=== PATIENT | female | born 1955 | race Caucasian/White ===

== ENCOUNTER → 2018-06-09 13:31 | Outpatient (CLI) | payer MEDICARE, SELFPAY ==
[2018-06-09 14:18] LABS: Color, Urine Yellow (Yellow); Glucose, Dipstick Normal (Normal); Ketone-Dipstick Negative (Negative); Leukocyte Esterase-Dipstick Negative /ul (Negative); Nitrite-Dipstick Negative (Negative); Occult Blood-Urine 50 /ul (Negative); Protein-Dipstick Negative (Negative); Specific Gravity, Urine 1.015 (1.002-1.030); Urine Bilirubin Dipstick Negative (Negative); Urine Clarity Clear (Clear); Urine Urobilinogen Normal (Normal)
== END ==
PROVIDERS: Family Provider Family Medicine; PCP Family Medicine; Visit Provider Family Medicine
DX: R30.0 Dysuria (principal)
CPT/HCPCS: 81002

== ENCOUNTER → 2018-10-28 06:51 | Outpatient (CLI) | payer MEDICARE, SELFPAY ==
[2018-10-25 13:23] VITALS: BMI 25.7
--- NOTE | 2018-10-28 07:08 | RAD_ITS ---
HISTORY: RT SI JT INFLAMATION AND BACK PAIN. HX NUMEROUS FALLS. COMPARISON: None FINDINGS: XR right Hip Unilateral with Pelvis when performed; 3 Views: No fracture or dislocation. Degenerative arthritis with mild narrowing of the right femoral acetabular joint accompanied by mild marginal spurring of the right femoral head. The left hip joint appears preserved and the SI joints are symmetrical and appear preserved. No bony erosion seen. As visualized, and the soft tissues are negative. RAD/HIP, UNI W/ Pelvis 2-3 Views IMPRESSION: 1. Right hip mild osteoarthritis. No acute disease seen. 2. The SI joints are symmetrical and appear normal. at 0515 Reported and signed by: Andriy Magana MD Electronically Signed: Andriy Magana, at 5:14 EST Tel , Service support ,
--- NOTE | 2018-10-28 07:08 | RAD_ITS ---
STUDY: X-RAY - LUMBAR SPINE REASON FOR EXAM: Female, 63 years old. Back pain. History of right SI joint inflammation. TECHNIQUE: 5 view(s) of the lumbar spine were obtained including oblique views. COMPARISON: None FINDINGS: Normal lumbar lordosis. There is no substantial scoliosis. There is a normal alignment of the vertebrae. There is mild degree of endplate spondylosis of the lumbar vertebrae. Mild degree of disc space narrowing at the L5-S1 level. There is atherosclerotic calcification of the abdominal aorta without a demonstrated aneurysm. RAD/L/S Spine Min 4 Views IMPRESSION: Degenerative changes of the spine, as detailed above. Electronically Signed: Jd Yuan MD at 9:47 EST , Service support ,
[2018-10-28 08:48] LABS: Erythrocyte Sedimentation Rate 3 mm/hr (0-30)
[2018-10-28 09:10] LABS: CRP < 2.90 mg/L (0.0-3.0); Rheumatoid Factor < 10.0 IU/mL (<15); T4 Free Direct 0.75 ng/dL (0.76-1.46); Thyroid Stim Hormone (TSH) 1.65 uIU/mL (0.358-3.74)
[2018-10-28 11:16] LABS: Vitamin B12 446 pg/mL (211-911); Vitamin D,25 Hydroxy 29.7 ng/mL (29.95-100.01)
[2018-10-29 14:34] LABS: ANTINUCLEAR ANTIBODIES DIRECT Negative (Negative)
== END ==
PROVIDERS: Family Provider Family Medicine; PCP Family Medicine; Referring Provider Family Medicine; Visit Provider Family Medicine
DX: E03.9 Hypothyroidism, unspecified (principal); M25.50 Pain in unspecified joint; M79.10 Myalgia, unspecified site; M25.551 Pain in right hip; M54.5 Low back pain
CPT/HCPCS: 36415; 72110; 73502; 82306; 82607; 84439; 84443; 84481; 85652; 86038; 86140; 86225; 86235; 86431

== ENCOUNTER 2018-11-22 08:57 | Day surgery (SDC) | payer MEDICARE, SELFPAY ==
[2018-11-10 15:21] VITALS: BMI 25.7
[2018-11-22 09:12] VITALS: BP 161/91; PULSE 83; RESP 18; TEMP 37.1; O2SAT 100
--- NOTE | 2018-11-22 10:15 | COLBX_PTH ---
PATIENT: AXEL SALDANA LOC: EN U#:[id number] AGE/SX: 63/F ROOM: RE11/22/[address]: Dr. Isidra Redding MD : 1955 BED: DIS: 11/22/2018 SPEC #: [id number] RECD: 11/22/18 10:59 STATUS: OMAR REKelsey #: [id number] LISA: 11/22/18 10:[address]: Isidra Redding DEPT: SURGICAL PATHOLOGY RECD BY: Tobin Carrasquillo ENTERED: 11/22/18 12:47 SP TYPE: COLON BX OTHR DR: Dr. Polina Carter DO Tissues: A - Ascending colon B - Transverse colon C - Descending colon D - Sigmoid colon biopsy E - Rectum, NOS F - Rectum, NOS Procedures: Surgery Specimen Level IV HEADER OPERATION: Colonoscopy (MAC) PRE-OP DIAGNOSIS: Diarrhea, history C-diff TISSUE SUBMITTED: A - Ascending colon biopsy, B - Transverse colon biopsy, C - Descending colon biopsy, D - Sigmoid colon biopsy, E - Rectal biopsy, F - Rectal polyp biopsy MICROSCOPIC DIAGNOSIS A. Ascending colon, biopsy: Fragments of colonic mucosa, no pathologic diagnosis. B. Transverse colon, biopsy: A fragment of colonic mucosa, no pathologic diagnosis. C. Descending colon, biopsy: A fragment of colonic mucosa, no pathologic diagnosis. D. Sigmoid colon, biopsy: Fragments of colonic mucosa, no pathologic diagnosis. E. Rectal biopsy: A fragment of colonic mucosa, no pathologic diagnosis. F. Rectal polyp, biopsy: Fragments of hyperplastic polyp. SJ:israel 11/23/18 MICROSCOPIC DESCRIPTION Slides are reviewed. GROSS DESCRIPTION A - Received in fixative is one container labeled with the patient's name and designated ascending biopsy. The specimen consists of two irregular fragments of light cesar soft tissue that in aggregate measure 0.6 x 0.3 x 0.1 cm. The specimen is totally submitted in one cassette. B - Received in fixative is one container labeled with the patient's name and designated transverse biopsy. The specimen consists of one irregular fragment of light cesar soft tissue that measures 0.6 x 0.2 x 0.1 cm. The specimen is totally submitted in one cassette. C - Received in fixative is one container labeled with the patient's name and designated descending biopsy. The specimen consists of one irregular fragment of light cesar soft tissue that measures 0.3 x 0.3 x 0.1 cm. The specimen is totally submitted in one cassette. D - Received in fixative is one container labeled with the patient's name and designated sigmoid colon biopsy. The specimen consists of two irregular fragments of light cesar soft tissue that in aggregate measure 0.4 x 0.4 x 0.1 cm. The specimen is totally submitted in one cassette. E - Received in fixative is one container labeled with the patient's name and designated rectal biopsy. The specimen consists of one irregular fragment of light cesar soft tissue that measures 0.4 x 0.2 x 0.1 cm. The specimen is totally submitted in one cassette. F - Received in fixative is one container labeled with the patient's name and designated rectal polyp biopsy. The specimen consists of two irregular fragments of light cesar soft tissue that in aggregate measure 0.4 x 0.2 x 0.1 cm. The specimen is totally submitted in one cassette. / SJ:rg 11/22/18 TC:1 CPT: 29842 x6
[2018-11-22 10:35] VITALS: BP 155/108; BP 161/91; PULSE 73; RESP 16; TEMP 36.4; O2SAT 100
[2018-11-22 10:40] VITALS: BP 152/96; BP 161/91; PULSE 69; RESP 16; O2SAT 100
--- NOTE | 2018-11-22 10:41 | OP.ENDO_ITS ---
Patient Name: Radha Gomez Procedure Date: 11/22/2018 9:57 AM Date of : 1955 Age: 63 Procedure: Colonoscopy Indications: Chronic diarrhea, Hx of c. diff in 2013 after getting Zpak Providers: Isidra Redding MD Medicines: Monitored Anesthesia Care Patient Profile: This is a 63 year old female. Last Colonoscopy: none. The patient's first colonoscopy is today. Complications: No immediate complications. Procedure: Pre-Anesthesia Assessment: - Prior to the procedure, a History and Physical was performed, and patient medications and allergies were reviewed. The patient's tolerance of previous anesthesia was also reviewed. The risks and benefits of the procedure and the sedation options and risks were discussed with the patient. All questions were answered, and informed consent was obtained. Prior Anticoagulants: The patient has taken no previous anticoagulant or antiplatelet agents. ASA Grade Assessment: II - A patient with mild systemic disease. After reviewing the risks and benefits, the patient was deemed in satisfactory condition to undergo the procedure. After I obtained informed consent, the scope was passed under direct vision. Throughout the procedure, the patient's blood pressure, pulse, and oxygen saturations were monitored continuously. The Colonoscope was introduced through the anus and advanced to the cecum, identified by the appendiceal orifice, ileocecal valve and palpation. The colonoscopy was performed without difficulty. The patient tolerated the procedure well. The quality of the bowel preparation was good. Scope In: 10:09:19 AM Scope Withdrawal Time 0 hours 11 minutes 55 seconds Scope Out: 10:32:25 AM Total Procedure Duration Time 0 hours 23 minutes 6 seconds Findings: The perianal and digital rectal examinations were normal. Biopsies were taken with a cold forceps in the rectum, in the sigmoid colon, in the descending colon, in the transverse colon and in the ascending colon for histology due to history of chronic diarrhea. The exam was otherwise without abnormality on direct and retroflexion views. A less than 5 mm polyp was found in the rectum. The polyp was sessile. The polyp was removed with a cold biopsy forceps. Resection and retrieval were complete. Impression: - The examination was otherwise normal on direct and retroflexion views. - Biopsies were taken with a cold forceps for histology in the rectum, in the sigmoid colon, in the descending colon, in the transverse colon and in the ascending colon due to history of chronic diarrhea. Recommendation: - Discharge patient to home. - Continue present medications. - Await pathology results. - Repeat colonoscopy in 5-10 years for screening purposes. Procedure Code(s): --- Professional --- 33216, Colonoscopy, flexible; with biopsy, single or multiple Diagnosis Code(s): --- Professional --- K52.9, Noninfective gastroenteritis and colitis, unspecified CPT copyright 2017 [employer] [place] [employer]. All rights reserved. The codes documented in this report are preliminary and upon district manager primary care sales review may be revised to meet current compliance requirements. MD Isidra Cabrera MD 11/22/2018 10:40:52 AM This report has been signed electronically. Number of Addenda: 0 Note Initiated On: 11/22/2018 9:57 AM
[2018-11-22 10:45] VITALS: BP 155/103; BP 161/91; PULSE 63; RESP 16; O2SAT 100
[2018-11-22 10:50] VITALS: BP 156/88; BP 161/91; PULSE 66; RESP 16; TEMP 36.6; O2SAT 100
[2018-11-22 11:03] VITALS: BP 161/91
== END 2018-11-22 11:15 | disposition home or self-care (01) ==
LOC: EN 08:57 → AC 08:59
PROVIDERS: Family Provider Family Medicine; PCP Family Medicine; Referring Provider Surgery; Visit Provider Surgery
PROC: 0DJD8ZZ Inspection of Lower Intestinal Tract, Via Natural or Artificial Opening Endoscopic (ICD-10-PCS; CPT 45378; principal; 2018-11-22 10:10)
DX: K52.9 Noninfective gastroenteritis and colitis, unspecified (principal); E55.9 Vitamin D deficiency, unspecified; F12.90 Cannabis use, unspecified, uncomplicated; I10 Essential (primary) hypertension; M79.7 Fibromyalgia; Z86.19 Personal history of other infectious and parasitic diseases
CPT/HCPCS: 45380; 88305; J7120

== ENCOUNTER → 2019-05-10 12:43 | Outpatient (CLI) | payer MEDICARE, SELFPAY ==
[2018-11-10 15:21] VITALS: BMI 25.7
--- NOTE | 2019-05-10 12:59 | BD_ITS ---
STUDY: DUAL ENERGY X-RAY ABSORPTIOMETRY / DXA REASON FOR EXAM: Female, 63 years old. The patient is postmenopausal. Loss of height. TECHNIQUE: Bone Mineral Density (BMD) measurements of lumbar spine and bilateral hips were obtained. COMPARISON: None. FINDINGS: Lumbar Spine (L1-L4): g/cm2 (0.920) / T-score (-2.2) / Z-score (-0.8) Findings are suggestive of osteopenia with a high fracture risk. Left Femur Total: g/cm2 (0.738) / T-score (-2.1) / Z-score (-1.1) Left Femoral Neck: g/cm2 (0.706) / T-score (-2.4) / Z-score (-1.1) Right Femur Total: g/cm2 (0.733) / T-score (-2.2) / Z-score (-1.2) Right Femoral Neck: g/cm2 (0.831) / T-score (-1.5) / Z-score (-0.2) BD/Dexa Bone Density Study IMPRESSION: The patient is considered osteopenic as outlined below according to World [employer] Organization (WHO) criteria with a high fracture risk. Reference Information: The T-score is the number of standard deviations above or below the standard which is normal for young adults at their peak bone mineral density. The World Health Organization (WHO) interprets the T-scores as follows: Above -1 Normal bone density Between -1 and -2.5 Osteopenia Equal to / or below -2.5 Osteoporosis As a practical clinical guideline, osteopenia may be graded as follows: Mild -1 through -1.5 Moderate -1.6 through -2.0 Severe -2.1 through -2.4 The Z-score is the number of standard deviations above or below age-matched controls. A Z-score of less than -1.5 would be considered abnormal. References: 1. NIH Osteoporosis and Related Bone Diseases http://www.osteo.org 2. International Society for Clinical Densitometry http://www.iscd.org 3. National Osteoporosis Foundation http://www.nof.org Electronically Signed: Jd Yuan, at 11:02 EDT , Service support ,
== END ==
PROVIDERS: Family Provider Family Medicine; PCP Family Medicine; Referring Provider Family Medicine; Visit Provider Family Medicine
DX: M81.0 Age-related osteoporosis without current pathological fracture (principal)
CPT/HCPCS: 77080

== ENCOUNTER 2019-05-10 17:10 | Outpatient (RCR) | payer MEDICARE, SELFPAY ==
[2018-11-10 15:21] VITALS: BMI 25.7
--- NOTE | 2019-05-10 18:24 | HP.PTEVAL_ITS ---
Patient's Visit Information PONCE SALDANA is a 63 year old F referred to Physical Therapy by Polina Carter DO with a diagnosis of Lumbar back pain. Date of Evaluation: 05/10/19 Physical Therapist: ESHA ThurmanT, OCS, CSCS - Visit Plan Frequency: 2x /Week Duration: 4 Weeks Plan: 2x/week for 2-4 weeks as needed. Start with aquatic therapy to teach Neutral spine core strength exercises and ITB, HS, QUaad stretches. 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 May progress to land as needed after I with pool ex. May go to yoga stretches and NS strength on lnad after. - Subjective Findings: Have FM, blood cancer(not luekemia) andauto immune. Lot of pain lately due to stress. On disability due to pain. Tried working laely but could not tolerate. Not interested in opioids. 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 Bone density test showed pre osteoporosis. CA is diminishing due to meds for pain. Is looking into other autoimmuneLupus etc. 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 Swims regualrly. Pain has increased in last 4 months due to FM flare up, vitamin D deficiency. Working with Dr. Carter to strengthen core muscles to help relieve pain. has massage therapist regularly. Is considering injections. Doing exercises including swim program breastroke adn freestyle. Does some stretches in water and some core strength on mat in water. Quads and calves cramp up. Numb from knees down with neuropathy and has had it long time. - Pain middle LBP Pain Intensity (Out of 10): 0 Pain Intensity Range: 0, 10 Comment: R sided LBP, wakes up painful. - Objective Walks with increased lordosis and i without deviations. Trasnfers I. Steps are reciprocal with rail. Posture is kyphotic in T/S and lordotic in L/S. reflexes 0/3 patella and achilles. Sensation LE is poor to gross light touch from 3 above knees and down. Strength LE 4+/5 without pain or problems. Flexibility in quad and HS and ITB max tight. Can find neutral spine quickly but hard for her to hold it without VC. L/S ext is WNL with slight central pain, flexion is tight in lumbar area and stiff. SB are full and painfree. - Balance Scores Functional Gait Assessment Score: 24 % Disability: 20.0000 - Goals Goal 1:: Pt able to find adn hold NS position without cues Goal Time Frame: 4-6 Weeks Goal 2:: I apporp water ex for neutral spine core strength Goal Time Frame: 2-4 Weeks Goal 3:: Pt feel pain in back 1/10 at worst adn 75% improved Goal Time Frame: 4-6 Weeks Goal 4:: Sleep without problems due to pain Goal Time Frame: 4-6 Weeks - Rehabilitation Potential Physical Therapy Diagnosis: LBP degenerative in nature. Rehabilitation Potential: Fair - Anticipated Interventions Patient/Client Instruction: Educate patient on: Condition, Plan of Care For the Purpose of:: To decrease pain, To increase tolerance to activity/condition/position Therapeutic Exercise to Include: Strength training, Flexibilty training, Passive ROM, Active ROM, Dynamic Lumbar Stabilization For the Purpose of:: To decrease pain, To increase ROM, To increase tolerance to activity/condition/position Thank you for the opportunity to evaluate your patient. For Medicare and Medicare HMO plans, please review the plan of care and approve it. It will need to be FAXED BACK to us at [phone] for Medicare purposes. For Medicare only, by signing this I certify the plan of care. Please let me know if there are questions or concerns regarding this plan of care. Physician Signature: Date:
--- NOTE | 2019-07-13 13:47 | HP.PTDCNRP_ITS ---
HP - Discharge Summary (1) - Patient Information PONCE SALDANA was seen in my office for initial evaluation on 05/10/19. The following Plan of Care was established for this patient: Initial Frequency: 2x /Week Initial Duration: 4 Weeks - Anticipated Interventions Patient/Client Instruction: Educate patient on: Condition, Plan of Care For the Purpose of:: To decrease pain, To increase tolerance to activity/con dition/position Therapeutic Exercise to Include: Strength training, Flexibilty training, Passive ROM, Active ROM, Dynamic Lumbar Stabilization For the Purpose of:: To decrease pain, To increase ROM, To increase tolerance to activity/condition/position This patient was last seen in our office 05/10/19. Pertinent comments regarding their Physical therapy will appear below: Pt seen for evaluation adn POC of aquatic therapy established. She cancelled her first session and neglected to return for further therapy. At this point, it has been two months and I will discontinue due to non attendance. At this point I will be discontinuing this patient from physical therapy. I would be happy to see this patient again in the future if found appropriate by the physician. Thank you! Oswald Pelletier, DPT, OCS, CSCS
== END 2019-05-10 19:00 | disposition home or self-care (01) ==
LOC: PT 17:10
PROVIDERS: Family Provider Family Medicine; PCP Family Medicine; Referring Provider Family Medicine; Visit Provider Family Medicine
DX: M54.5 Low back pain (principal)
CPT/HCPCS: 97110; 97162

== ENCOUNTER → 2020-03-29 13:45 | Outpatient (CLI) | payer MEDICARE, SELFPAY ==
[2018-11-10 15:21] VITALS: BMI 25.7
[2020-03-29 15:13] LABS: Basophil# 0.04 X10^3/uL; Basophil% 0.4 % (0-1); Eosinophil# 0.16 X10^3/uL; Eosinophils% 1.6 % (0-5); Hemoglobin 15.4 g/dL (12.0-15.0); Lymphocyte % 22.6 % (19-41); Mean Corp Hgb Conc 33.5 g/dL (32-36); Mean Corpuscular Hgb 30.9 pg (27.0-32.0); Mean Corpuscular Volume 92.2 fL (81-99); Mean Platelet Vol. 9.8 fl (6.2-12.0); Monocyte# 0.59 X10^3/uL; Monocyte% 5.8 % (0-10); NRBC Flagged by Analyzer 0 % (0-5); Neutrophil # 7.04 X10^3/uL (2.7-7.7); Neutrophil % 69.2 % (47-70); Platelet Count 320 K/mm3 (150-450); RBC Distribution Width CV 12.5 % (11.6-14.6); RBC Distribution Width SD 42.5 fl (35.1-43.9); Red Blood Count 4.99 M/mm3 (4.2-5.4); White Blood Count 10.2 K/mm3 (4.4-11.0)
[2020-03-29 15:57] LABS: ALB/GLOB Ratio 1.3 RATIO (0.9-2.4); AST(SGOT) 52 U/L (15-37); Alanine Aminotransfer ALT/SGPT 78 U/L (13-56); Albumin, Serum 4.4 g/dL (3.2-5.0); Alkaline Phosphatase 80 U/L (45-117); Anion Gap 9 (5-15); BUN 15 mg/dL (7-18); Calcium,Total 9.8 mg/dL (8.5-10.1); Chloride 101 mmol/L (98-107); EST Glomerular Filtration Rate 60 mL/min (>60); Est Glom Filt Rate - Afr Amer 72 mL/min (>60); Globulin 3.3 g/dL (2.2-4.2); Glucose 118 mg/dL (74-106); Potassium 3.4 mmol/L (3.5-5.1); Protein, Total 7.7 g/dL (6.4-8.2); Sodium Level 137 mmol/L (136-145)
[2020-03-29 16:18] LABS: Vitamin B12 577 pg/mL (211-911); Vitamin D,25 Hydroxy 62.4 ng/mL
== END ==
PROVIDERS: PCP Family Medicine; Visit Provider Family Medicine
DX: E53.8 Deficiency of other specified B group vitamins (principal); Z20.828 Contact with and (suspected) exposure to other viral communicable diseases; E55.9 Vitamin D deficiency, unspecified; Z51.81 Encounter for therapeutic drug level monitoring
CPT/HCPCS: 36415; 80053; 82306; 82607; 85025

== ENCOUNTER → 2020-04-03 12:02 | Outpatient (CLI) | payer MEDICARE, SELFPAY ==
[2018-11-10 15:21] VITALS: BMI 25.7
== END ==
PROVIDERS: PCP Family Medicine; Referring Provider Family Medicine; Visit Provider Family Medicine
DX: Z20.828 Contact with and (suspected) exposure to other viral communicable diseases (principal)
CPT/HCPCS: 87635; G2023; U0003

== ENCOUNTER → 2020-10-29 10:31 | Outpatient (CLI) | payer MEDICARE, SELFPAY ==
[2020-05-28 10:59] VITALS: BMI 27.6
[2020-10-29 13:24] LABS: ALB/GLOB Ratio 1.2 RATIO (0.9-2.4); AST(SGOT) 44 U/L (15-37); Alanine Aminotransfer ALT/SGPT 67 U/L (13-56); Albumin, Serum 4.2 g/dL (3.2-5.0); Alkaline Phosphatase 81 U/L (45-117); Anion Gap 8 (5-15); BUN 11 mg/dL (7-18); BUN/Creat Ratio 14.2 RATIO (10-20); Calcium,Total 9.6 mg/dL (8.5-10.1); Chloride 105 mmol/L (98-107); Cholesterol 201 mg/dL (200); Creatinine, Serum 0.77 mg/dL (0.55-1.02); EST Glomerular Filtration Rate 80 mL/min (>60); Est Glom Filt Rate - Afr Amer 97 mL/min (>60); Globulin 3.6 g/dL (2.2-4.2); Glucose 104 mg/dL (74-106); High Density Lipoprotein 54 mg/dL; Potassium 4.1 mmol/L (3.5-5.1); Protein, Total 7.8 g/dL (6.4-8.2); Sodium Level 140 mmol/L (136-145); Triglycerides 171 mg/dL; Very Low Density Lipoprotein 34 mg/dL (5-40)
[2020-10-29 13:26] LABS: Vitamin B12 684 pg/mL (211-911); Vitamin D,25 Hydroxy 48.9 ng/mL
== END ==
PROVIDERS: PCP Family Medicine; Visit Provider Family Medicine
DX: Z51.81 Encounter for therapeutic drug level monitoring (principal); E55.9 Vitamin D deficiency, unspecified; E78.5 Hyperlipidemia, unspecified
CPT/HCPCS: 36415; 80053; 80061; 82306; 82607

== ENCOUNTER → 2021-02-15 08:04 | Outpatient (CLI) | payer MEDICARE, SELFPAY ==
[2021-02-15 11:35] LABS: Vitamin D,25 Hydroxy 78.6 ng/mL
[2021-02-15 14:43] LABS: Chlamydia Trachomatis by PCR Negative (Negative); Neisserai gonorrhoeae by PCR Negative (Negative)
[2021-02-15 14:44] LABS: Probe Check PASS; Sample Adequacy Control PASS; Specimen Processing Control PASS
== END ==
PROVIDERS: PCP Family Medicine; Referring Provider Family Medicine; Visit Provider Family Medicine
DX: Z20.2 Contact with and (suspected) exposure to infections with a predominantly sexual mode of transmission (principal); E55.9 Vitamin D deficiency, unspecified
CPT/HCPCS: 36415; 82306; 87491; 87591

== ENCOUNTER 2021-03-21 12:46 | Outpatient (RCR) | payer MEDICARE, SELFPAY ==
--- NOTE | 2021-04-04 12:41 | HP.OTFCE_ITS ---
Floor (Occasional 1-33% of Day): 15# Floor (Frequent 34-66% of Day): 8# Floor (Constant 67-100% of Day): NA Floor PDL: Sedentary-Light Knee (Occasional 1-33% of Day): 15# Knee (Frequent 34-66% of Day): 8# Knee (Constant 67-100% of Day): NA Knee PDL: Sedentary-Light Waist (Occasional 1-33% of Day): 15# Waist (Frequent 34-66% of Day): 8# Waist (Constant 67-100% of Day): NA Waist PDL: Sedentary-Light Shoulder (Occasional 1-33% of Day): 15# Shoulder (Frequent 34-66% of Day): 8# Shoulder (Constant 67-100% of Day): NA Shoulder PDL: Sedentary-Light Overhead (Occasional 1-33% of Day): 10# Overhead (Frequent 34-66% of Day): NA Overhead (Constant 67-100% of Day): NA Overhead PDL: Sedentary Bending: Occasional Ability (1-33% of day) Squatting: Occasional Ability (1-33% of day) Comments: with external support Kneeling: Occasional Ability (1-33% of day) Comments: with external support Reaching out: Frequent Ability (34-66% of day) Reaching up: Frequent Ability (34-66% of day) Sitting: Frequent Ability (34-66% of day) Walking: Occasional Ability (1-33% of day) Standing: Occasional Ability (1-33% of day) Duration Sedentary Sedentary Light Light Light Medium Medium Medium Heavy Very Heavy Heavy Occasional (0-33% of day) Frequent (34-66% of day) Constant (67-100% of day) 10 # Negligible Negligible 15 # 8 # Negligible 20 # 10# Negli. 35 # 18 # 7 # 50 # 25 # 10 # 75 # 100 # >100 # 38 # 50 # >50 # 15 # 20 # >20 # Weight:: 83.915 kg Hand Dominance: left Medical History Including Restrictions: PT states she was in fair health until 2006 when she started getting sick. Pt states she was dx later with fibromyalgia. pt states she was dx with multiple myeloma dx in 2014- treated with CBDs that brings her cancer numbers down. pt states was advised rest and avoid stress. pt states she was dx with chronic pain. pt states she has had back pain and had been seeing Pain mtg. in 2020 for injections. pt states she just was there two and a half weeks ago. pt states her pain mtg has ordered a tens unit and does workout in the pool 3-4x week and she spends about and hour. pt states she was placed on full disability program in 2010 or 2011 and about three years ago pt was trying to return to working 20 hours a week + her disability. 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 Diagnoses: Fibromyalgia dx 2007. Multiple myeloma dx 2014. Chronic pain 2008. Back pain. Anxiety for 20-30 year. neuropathy dx 2008 Symptoms: Falls. Pain. Back pain. Right hip pain Pain: pt reports back and right hip pain /10. pt states this is her normal. Following session pt reported pain in back and hip at 7-8/10. 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 pt states she has been there for about three years. pt states she quit this job March 2020 ( pt states her advised her not to return to work until she gets Covid vaccine) pt states she was finished with the vaccine in process in 01/23. pt has not returned to work at this time. pt states she is unsure she can tolerate returning to her position. 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 Behavioral: Pt was emotional throughout the session but cooperative. ADLS: Pt states she lives in a third floor apartment and has to climb two flights of stairs, one handrail. pt states tub shower combination, has three grab bars. pt states she does stand for her shower and can perform her bathing and dressing at a ind. level. pt does drive. pt does the grocery shopping. pt states she does the cleaning, and yard mtg. and has a garden she works on. Physical Examination: resting heart rate 83 ROM: pt demo with WFL ROM grossly throughout UE and LE Strength: Pt demo BUE 4+/5. pt demo hip flex at 4-/5 bilateral. right/left quad/hamstrings 4+/5 Right Tractor Trailer Mechanic Strength Average: 36.66 Right Tractor Trailer Mechanic Strength Percentile: 9% Left Tractor Trailer Mechanic Strength Average: 30.00 Left Tractor Trailer Mechanic Strength Percentile: 7% Right Lateral Pinch Average: 8.00 Right Lateral Pinch Percentile: 10% Left Lateral Pinch Average: 8.00 Left Lateral Pinch Percentile: 10% Right Tripod Pinch Average: 8.00 Right Tripod Pinch Percentile: 25% Left Tripod Pinch Average: 8.00 Left Tripod Pinch Percentile: 25% Sensation: denines Fine Motor: 9 hole peg test. right 22.33 seconds =50%. left 20.47 seconds = 75% Balance: pt demo with good balance Bending: pt demonstrated the ability to bend forward 3/3 times, pt demonstrated the ability to bend forward 10/10. pt states with last motion at 7/10 pain. pt states pain goes away after motion was completed- pt demonstrated 10/10 rapidly with pain. heart rate at 78. pt can bend forward on an occasional ability Squatting: pt demonstrated the ability to squat 3/3, 10/10 and 10/10 rapidly with external support. pt states right knee pain 8/10. heart rate 84. pt can squat on an occasional ability with external support Kneeling: pt demonstrated the ability to kneel 3/3, 10/10 and rapidly 10/10 times with external support. pt can kneel on an occasional ability with external support. Reaching out/up: pt demonstrated the ability to reach up 3/3, 10/10 and 10/10 rapidly and out 3/3, 10/10, and 10/10 rapidly. pt states she could feel right side pulling but did not rate any pain. heart rate 76. pt can reach up/out on a frequent ability Walking: pt ambulated with an antalgic reciprocal gait pattern for 9.5 minutes. pt reported a right hip pain, throbbing pain but unrated. pt can ambulate on a occasional ability. Standing: pt demo with the ability to stand for 6 minutes shifting body weight. pt can stand on an occasional ability. Sitting: pt demo sitting for 40 min with no apparent or discomfort. pt can sit on a frequent ability. Climbing Stairs: pt demonstrated the ability to ascend and descend 10 steps with a reciprocal step pattern and use of the hand rail. Floor Lift: pt demonstrated the ability to lift 15# maximally from floor level with fair lifting mechanics. Knee Lift: pt demonstrated the ability to lift 15# maximally from knee level with fair lifting mechanics. Waist Lift: pt demonstrated the ability to lift 15# maximally from waist level with fair lifting mechanics. Shoulder Lift: pt demonstrated the ability to lift 15# maximally from shoulder level with fair lifting mechanics. Overhead Lift: pt demonstrated the ability to lift 10# maximally from overhead level with fair lifting mechanics. Carrying: pt demonstrated the ability to carry 10# comfortably for 40 feet.
--- NOTE | 2021-04-04 12:42 | HP.OTFCE.D ---
FCE D/C Summary - Discharge AXEL SALDANA was seen for a one time visit for an FCE on 03/21/21 and is discharged.
== END 2021-03-21 19:00 | disposition home or self-care (01) ==
LOC: OT 12:46
PROVIDERS: PCP Family Medicine; Referring Provider Anesthesiology Pain Medicine; Visit Provider Anesthesiology Pain Medicine
DX: M54.9 Dorsalgia, unspecified (principal)
CPT/HCPCS: 97750

== ENCOUNTER → 2021-04-16 13:32 | Outpatient (CLI) | payer MEDICARE, SELFPAY ==
--- NOTE | 2021-04-16 13:34 | RAD_ITS ---
STUDY: X-RAY - LUMBAR SPINE REASON FOR EXAM: Female, 65 years old. Trauma. Pain. TECHNIQUE: 2 view(s) of the lumbar spine were obtained. COMPARISON: None FINDINGS: Generalized osteopenia. Normal lumbar lordosis. There is no substantial scoliosis. There is a normal alignment of the vertebrae. Normal vertebral bodies and endplates. Diffuse facet sclerosis. Intervertebral disc space narrowing at L1-L2, L2-L3, L3-L4 and L5-S1 with osteophyte formation most marked at L1-2 and L3-4. Vascular calcification. RAD/Lumbar Spine 2 or 3 Views IMPRESSION: Osteopenia with moderate spondylosis. No acute abnormality, evidence of erosive changes or fusion. Electronically Signed: Mu Bardales MD at 10:33 EDT , Service support ,
--- NOTE | 2021-04-16 13:40 | RAD_ITS ---
STUDY: X-RAY - CERVICAL SPINE REASON FOR EXAM: Female, 65 years old. Trauma. Pain. TECHNIQUE: 2 view(s) of the cervical spine were obtained. COMPARISON: None FINDINGS: Generalized osteopenia. Normal anterior atlantoaxial articulation. Normal odontoid process. Normal cervical lordosis. Normal vertebral bodies and endplates. Diffuse uncovertebral and facet sclerosis. Intervertebral disc space narrowing at C4-5, C5-6, C6-7 and C7-T1 with osteophyte formation most marked at C5-6 and C6-7. The soft tissue structures are unremarkable. RAD/Cerv Spine 2 or 3 Views IMPRESSION: Osteopenia with diffuse moderate cervical spondylosis. No evidence of erosive change or fusion. Electronically Signed: Mu Bardales MD at 10:27 EDT , Service support ,
== END ==
PROVIDERS: PCP Family Medicine; Referring Provider Anesthesiology Pain Medicine; Visit Provider Anesthesiology Pain Medicine
DX: M47.812 Spondylosis without myelopathy or radiculopathy, cervical region (principal); M47.816 Spondylosis without myelopathy or radiculopathy, lumbar region; M85.88 Other specified disorders of bone density and structure, other site
CPT/HCPCS: 72040; 72100

== ENCOUNTER 2021-04-17 16:08 | Emergency (ER) | payer MEDICARE, SELFPAY ==
[2021-04-17 16:09] VITALS: BP 155/97; PULSE 92; RESP 16; TEMP 36.4; O2SAT 95; BMI 29.3
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
[2021-04-17 16:55] LABS: Absolute Lymphocyte Count 2.28 X10^3/uL (0.83-4.51); Absolute Neutrophil Count 7.7 X10^3/uL (2.0-7.7); Basophil# 0.06 X10^3/uL; Basophil% 0.6 % (0-1); Eosinophil# 0.13 X10^3/uL; Eosinophils% 1.2 % (0-5); Hematocrit 46.1 % (37-47); Lymphocyte # 2.28 X10^3/ul (0.83-4.51); Lymphocyte % 21.4 % (19-41); Mean Corp Hgb Conc 32.5 g/dL (32-36); Mean Corpuscular Hgb 29.9 pg (27.0-32.0); Mean Corpuscular Volume 91.8 fL (81-99); Mean Platelet Vol. 9.2 fl (6.2-12.0); Monocyte# 0.47 X10^3/uL; Monocyte% 4.4 % (0-10); NRBC Flagged by Analyzer 0 % (0-5); Neutrophil # 7.65 X10^3/uL (2.7-7.7); Neutrophil % 71.7 % (47-70); Platelet Count 295 K/mm3 (150-450); RBC Distribution Width CV 12.8 % (11.6-14.6); RBC Distribution Width SD 43.2 fl (35.1-43.9); Red Blood Count 5.02 M/mm3 (4.2-5.4); White Blood Count 10.7 K/mm3 (4.4-11.0)
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
[2021-04-17 17:10] LABS: ALB/GLOB Ratio 1.2 RATIO (0.9-2.4); AST(SGOT) 44 U/L (15-37); Alanine Aminotransfer ALT/SGPT 71 U/L (13-56); Albumin, Serum 4.1 g/dL (3.2-5.0); Alkaline Phosphatase 85 U/L (45-117); Anion Gap 4 (5-15); BUN 11 mg/dL (7-18); BUN/Creat Ratio 12.8 RATIO (10-20); Calcium,Total 9.6 mg/dL (8.5-10.1); Chloride 104 mmol/L (98-107); Creatinine, Serum 0.86 mg/dL (0.55-1.02); EST Glomerular Filtration Rate 71 mL/min (>60); Est Glom Filt Rate - Afr Amer 85 mL/min (>60); Estimated Creatinine Clearance 67.54 ml/min; Globulin 3.4 g/dL (2.2-4.2); Glucose 134 mg/dL (74-106); Lipase 82 U/L (73-393); Protein, Total 7.5 g/dL (6.4-8.2); Sodium Level 138 mmol/L (136-145)
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
[2021-04-17 18:33] VITALS: BP 120/79; PULSE 62; RESP 16; O2SAT 99
== END 2021-04-17 18:41 | disposition home or self-care (01) ==
PROVIDERS: Emergency Provider Emergency Medicine; PCP Family Medicine
DX: S06.0X9D Concussion with loss of consciousness of unspecified duration, subsequent encounter (principal); S33.5XXD Sprain of ligaments of lumbar spine, subsequent encounter; V49.40XD Driver injured in collision with unspecified motor vehicles in traffic accident, subsequent encounter; S30.1XXD Contusion of abdominal wall, subsequent encounter; F41.9 Anxiety disorder, unspecified; F32.9 Major depressive disorder, single episode, unspecified; E28.2 Polycystic ovarian syndrome; G62.9 Polyneuropathy, unspecified; K76.0 Fatty (change of) liver, not elsewhere classified; Z79.1 Long term (current) use of non-steroidal anti-inflammatories (NSAID); Z90.710 Acquired absence of both cervix and uterus; I70.0 Atherosclerosis of aorta; M47.816 Spondylosis without myelopathy or radiculopathy, lumbar region; K44.9 Diaphragmatic hernia without obstruction or gangrene
CPT/HCPCS: 70450; 72070; 73610; 74177; 80053; 83690; 85025; 99283; Q9967; A4216

== ENCOUNTER 2021-05-02 12:19 | Emergency (ER) | payer MEDICARE, SELFPAY ==
[2021-05-02 12:19] VITALS: BP 142/95; PULSE 86; RESP 17; TEMP 36.4; O2SAT 96; BMI 28.8
[2021-05-02 12:41] VITALS: O2SAT 96
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
[2021-05-02 14:09] LABS: Absolute Lymphocyte Count 2.12 X10^3/uL (0.83-4.51); Absolute Neutrophil Count 6.2 X10^3/uL (2.0-7.7); Basophil# 0.06 X10^3/uL; Basophil% 0.7 % (0-1); Eosinophil# 0.13 X10^3/uL; Eosinophils% 1.4 % (0-5); Hematocrit 49.3 % (37-47); Hemoglobin 16.1 g/dL (12.0-15.0); Lymphocyte # 2.12 X10^3/ul (0.83-4.51); Lymphocyte % 23.6 % (19-41); Mean Corp Hgb Conc 32.7 g/dL (32-36); Mean Platelet Vol. 9.3 fl (6.2-12.0); Monocyte# 0.48 X10^3/uL; Monocyte% 5.3 % (0-10); NRBC Flagged by Analyzer 0 % (0-5); Neutrophil # 6.15 X10^3/uL (2.7-7.7); Neutrophil % 68.3 % (47-70); Platelet Count 291 K/mm3 (150-450); RBC Distribution Width CV 12.7 % (11.6-14.6); RBC Distribution Width SD 42.5 fl (35.1-43.9); Red Blood Count 5.36 M/mm3 (4.2-5.4)
[2021-05-02] MEDS: 0.9% Normal Saline 1,000 ML 1000 ML IV (14:18)
[2021-05-02 14:19] VITALS: BP 155/104; PULSE 62; RESP 17; O2SAT 97
[2021-05-02 14:24] LABS: ALB/GLOB Ratio 1.4 RATIO (0.9-2.4); AST(SGOT) 32 U/L (15-37); Alanine Aminotransfer ALT/SGPT 67 U/L (13-56); Albumin, Serum 4.6 g/dL (3.2-5.0); Alkaline Phosphatase 86 U/L (45-117); Anion Gap 6 (5-15); BUN 13 mg/dL (7-18); Calcium,Total 9.4 mg/dL (8.5-10.1); Chloride 102 mmol/L (98-107); Creatinine, Serum 0.82 mg/dL (0.55-1.02); EST Glomerular Filtration Rate 75 mL/min (>60); Est Glom Filt Rate - Afr Amer 91 mL/min (>60); Estimated Creatinine Clearance 70.84 ml/min; Globulin 3.4 g/dL (2.2-4.2); Glucose 116 mg/dL (74-106); Lipase 102 U/L (73-393); Potassium 4.2 mmol/L (3.5-5.1); Sodium Level 139 mmol/L (136-145)
[2021-05-02 14:35] LABS: Bacteria 0 SEEN /hpf (None Seen); Mucous, Urine 0 SEEN /hpf (<or=2+); Squamous Epithelial Cells - UA 0 SEEN /hpf (5-10)
[2021-05-02 14:43] LABS: Color, Urine Yellow (Yellow); Glucose, Dipstick Normal (Normal); Ketone-Dipstick Negative (Negative); Leukocyte Esterase-Dipstick Negative /ul (Negative); Nitrite-Dipstick Negative (Negative); Occult Blood-Urine 25 /ul (Negative); Protein-Dipstick Negative (Negative); Specific Gravity, Urine 1.015 (1.002-1.030); Urine Bilirubin Dipstick Negative (Negative); Urine Clarity Clear (Clear); Urine Urobilinogen Normal (Normal)
[2021-05-02 14:51] LABS: Red Blood Cells-Urine 0-5 SEEN /hpf (0-5); White Blood Cells 0-5 SEEN /hpf (0-5)
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
[2021-05-02 16:35] VITALS: BP 147/108; PULSE 69; RESP 16; O2SAT 99
== END 2021-05-02 16:35 | disposition short-term general hospital (02) ==
PROVIDERS: Emergency Provider Emergency Medicine; PCP Family Medicine
DX: R10.9 Unspecified abdominal pain (principal); E28.2 Polycystic ovarian syndrome; F32.9 Major depressive disorder, single episode, unspecified; F41.9 Anxiety disorder, unspecified; G62.9 Polyneuropathy, unspecified; R53.82 Chronic fatigue, unspecified; Z79.1 Long term (current) use of non-steroidal anti-inflammatories (NSAID); V89.2XXA Person injured in unspecified motor-vehicle accident, traffic, initial encounter; Y93.89 Activity, other specified; Y92.410 Unspecified street and highway as the place of occurrence of the external cause; Y99.9 Unspecified external cause status
CPT/HCPCS: 74177; 80053; 81001; 83690; 85025; 96361; 96374; 96375; 99282; J7030; Q9967; A4216; J2405

== ENCOUNTER 2022-01-20 15:00 | Outpatient (RCR) | payer MEDICARE, SELFPAY ==
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
--- NOTE | 2021-12-27 11:51 | HP.PTREVAL_ITS ---
Dr. Juliette Low MD, It has been my pleasure to treat AXEL SALDANA over the last 12 visits for B ankle sprain, peripheral neuropathy and instability with gait. Please see the progress note below for an update on the physical therapy plan of care! Subjective: Pt. reports overall having improvement for her back and hips, but has not noticed much improvement in her ankles. She reports having increased BP now, being management by PCP. She reports being HEP compliant in pool at local pool. Pt. reports R ankle is doing pretty good, but is not having much im provement in her L ankle. Objective/Function: Pt. reports having B peripheral neuropathy, but her ankle gives out on her and crunches a lot. She is still having increase pain with WBing activities. She reports having increased concerned with her L ankle swelling. I feel stronger general, but I am still having some pain. I think it is damage.. ROM: L ankle: DF 12deg, PF 48deg, INV 10deg, EVER 10deg. Knee 0-0-129deg. Pt. reports some calf tightness, but not bad. No pain with full PROM ankle INV, SUP, PRO, EVR. TU sec without AD. 6 MWT: 705feet mild increase in L ankle pain. MMT: 5/5 throughout L ankle without increase in symptoms. Knee: 5-/5 flexion and extension. Hip: flexoion 4+/5, abd 4/5, ext 4+/5. Core strength poor+. GAIT: Pt. ambulates without AD. Pt. reports mild pain at lateral ankle, but minimal. She does have increased lateral hip sway in during L stance phase (weak, glute med, but no true trandelenburg). Decreased bilateral step length noted. STAIRS: Pt. negotiates with reciprocal pattern. Pt. uses HR without issues. No early heel off noted. Overall functionally she is doing well. It seems like she is concerned about her numbness in her leg and arm, also about the cracking in her ankle. She also reports as the day progresses she gets significantly worse. I talked to her about her strength and ROM being much improved. She is I with aquatic exercises and plans to complete on her own for ~1 month. Plan Plan: Pt. to complete HEP in aquatic setting for ~1 month to determine if able to self progress at this point in time. If she is doing doing well or declining we may resume, but I would like to trial I at this point in time. If I do not hear from her during this time frame I will DC back to physician. Balance/Gait/Functional tests - Balance/Special Test Scores Functional Gait Assessment Score: 17 % Disability: 43.3400 CATSIB Score (Max score 120 seconds): 42 Lower Extremity Functional Score: 32 TUG Test Time Seconds: 14.75 Tug Test: <20 sec.=mostly independent Goals Goal 1:: LTG: Pt. to be I with HEP. Goal Time Frame: 4-6 Weeks Goal Progress: Goal Met Goal 2:: STG: Pt. to ambulate with normal gait pattern without increase in symptoms. Goal Time Frame: 2-4 Weeks Goal Progress: Progressing Goal 3:: LTG: Pt. to complete TUG in less that 10sec without AD indicating increased stability with gait. Goal Time Frame: 4-6 Weeks Goal Progress: Progressing Goal 4:: LTG: Pt. complete 6 MWT with walking 800 feet indicating increased functional mobility. Goal Time Frame: 4-6 Weeks Goal Progress: Progressing Goal 5:: LTG: Pt. to be able to complete SLS for 30sec on LLE without use of external assistance. Goal Time Frame: 4-6 Weeks Goal Progress: Progressing Goal 6:: LTG: pt. to have increased ankle strength to 5/5 throughout bilaterally. Goal Time Frame: 4-6 Weeks Goal Progress: Progressing Anticipated Interventions Patient/Client Instruction: Educate patient on: Condition, Plan of Care, Risk Factors, Benefits of Fitness Program For the Purpose of:: To foster healthy habits, To improve decision making, To facilitate caregiver knowledge, To improve self management, To prevent re- injury, To improve ability to perform tasks related to life management Therapeutic Exercise to Include: Strength training, Power training, Balance training, Coordination, Postural training, Flexibilty training, Gait and locomotor training, Neuromotor development, In an aquatic setting For the Purpose of:: To increase ROM, To improve nutrient delivery to tissue, To increase oxygenation perfusion, To improve muscle performance and motor function, To improve ability to perform ADL's, To increase tolerance to activity/condition/position, To improve gait and locomotor functions, To improve health of tissue, To decrease soft tissue restriction, To improve endurance, To improve balance Please do not hesitate to contact me at [phone] by phone or if you have questions or concerns regarding this new plan of care! Sincerely, ESHA LoweT
--- NOTE | 2021-12-30 10:52 | HP.PTDCSUM ---
It has been my pleasure to treat AXEL SALDANA referred by Dr. Juliette Low MD, with the diagnosis of B ankle sprain, peripheral neuropathy and instability with gait for a total of 12 visit(s). Discharge Date: Please see the following information for a summary of their discharge status. Subjective: Pt. reports overall having improvement for her back and hips, but has not noticed much improvement in her ankles. She reports having increased BP now, being management by PCP. She reports being HEP compliant in pool at local pool. Pt. reports R ankle is doing pretty good, but is not having much improvement in her L ankle. Cervical spine Pain Intensity (Out of 10): 0 R hip Pain Intensity (Out of 10): 0 Lumbar spine Pain Intensity (Out of 10): 0 L wrist Pain Intensity (Out of 10): 0 BLEs Pain Intensity (Out of 10): 2 % Improvement: 50 Objective/Function: Pt. reports having B peripheral neuropathy, but her ankle gives out on her and crunches a lot. She is still having increase pain with WBing activities. She reports having increased concerned with her L ankle swelling. I feel stronger general, but I am still having some pain. I think it is damage.. ROM: L ankle: DF 12deg, PF 48deg, INV 10deg, EVER 10deg. Knee 0-0-129deg. Pt. reports some calf tightness, but not bad. No pain with full PROM ankle INV, SUP, PRO, EVR. TU sec without AD. 6 MWT: 705feet mild increase in L ankle pain. MMT: 5/5 throughout L ankle without increase in symptoms. Knee: 5-/5 flexion and extension. Hip: flexoion 4+/5, abd 4/5, ext 4+/5. Core strength poor+. GAIT: Pt. ambulates without AD. Pt. reports mild pain at lateral ankle, but minimal. She does have increased lateral hip sway in during L stance phase (weak, glute med, but no true trandelenburg). Decreased bilateral step length noted. STAIRS: Pt. negotiates with reciprocal pattern. Pt. uses HR without issues. No early heel off noted. Overall functionally she is doing well. It seems like she is concerned about her numbness in her leg and arm, also about the cracking in her ankle. She also reports as the day progresses she gets significantly worse. I talked to her about her strength and ROM being much improved. She is I with aquatic exercises and plans to complete on her own for ~1 month. Goal 1:: LTG: Pt. to be I with HEP. Goal Progress: Goal Met Goal 2:: STG: Pt. to ambulate with normal gait pattern without increase in symptoms. Goal Progress: Progressing Goal 3:: LTG: Pt. to complete TUG in less that 10sec without AD indicating increased stability with gait. Goal Progress: Progressing Goal 4:: LTG: Pt. complete 6 MWT with walking 800 feet indicating increased functional mobility. Goal Progress: Progressing Goal 5:: LTG: Pt. to be able to complete SLS for 30sec on LLE without use of external assistance. Goal Progress: Progressing Goal 6:: LTG: pt. to have increased ankle strength to 5/5 throughout bilaterally. Goal Progress: Progressing Plan: Pt. to complete HEP in aquatic setting for ~1 month to determine if able to self progress at this point in time. If she is doing doing well or declining we may resume, but I would like to trial I at this point in time. If I do not hear from her during this time frame I will DC back to physician. If there are questions or concerns regarding this patient's physical therapy, please feel free to call me at [phone]. Thank you for the referral of this patient. Sincerely, Oral Hampton, DPT Balance/Gait/Functional tests - Balance/Special Test Scores Functional Gait Assessment Score: 17 % Disability: 43.3400 CATSIB Score (Max score 120 seconds): 42 Lower Extremity Functional Score: 32 TUG Test Time Seconds: 14.75 Tug Test: <20 sec.=mostly independent
--- NOTE | 2022-01-21 10:00 | HP.PTDCSUM ---
It has been my pleasure to treat AXEL SALDANA referred by Dr. Juliette Low MD, with the diagnosis of B ankle sprain, peripheral neuropathy and instability with gait for a total of 13 visit(s). Discharge Date: 01/20/22 Please see the following information for a summary of their discharge status. Subjective: Pt. reports overall doing well with her aquatic exercises. She reports no pain while in the pool, but still has increased pain with walking and standing. She is still having pain at lateral distal leg and ankle pain. Pt. reports being compliant with all exercises. Cervical spine Pain Intensity (Out of 10): 0 R hip Pain Intensity (Out of 10): 0 Lumbar spine Pain Intensity (Out of 10): 0 L wrist Pain Intensity (Out of 10): 0 BLEs Pain Intensity (Out of 10): 0 L distal LE Pain Intensity (Out of 10): 2 % Improvement: 50 Objective/Function: Pt. still has pretty good ROM. She reports minimal chance in her pain at this point in time. She believes there is damage in her leg that is not being fully addressed. She did not report any increase in symptoms with MMT, and ROM testing today. She reports increased pain throughout the day. She reports increased swelling, but minimal currently. She is following up with a neurologist tomorrow. At this point in time she doing well with her MMT and ROM. I did have have a change in symptoms with mechanical testing this date. Pt. from a PT stand point in doing well. she might need other testing to rule out further pain. Goal 1:: LTG: Pt. to be I with HEP. Goal Progress: Goal Met Goal 2:: STG: Pt. to ambulate with normal gait pattern without increase in symptoms. Goal Progress: Progressing Goal 3:: LTG: Pt. to complete TUG in less that 10sec without AD indicating increased stability with gait. Goal Progress: Progressing Goal 4:: LTG: Pt. complete 6 MWT with walking 800 feet indicating increased functional mobility. Goal Progress: Progressing Goal 5:: LTG: Pt. to be able to complete SLS for 30sec on LLE without use of external assistance. Goal Progress: Progressing Goal 6:: LTG: pt. to have increased ankle strength to 5/5 throughout bilaterally. Goal Progress: Progressing Plan: DC to HEP at this point in time. Discharge Comments: Pt. will be DC to I aquatic program at this point in time. She is still having symptoms at her lateral leg, but seems to be unchanged with testing this date. Might need further testing to rule out alternate injury. DC back to physician. If there are questions or concerns regarding this patient's physical therapy, please feel free to call me at [phone]. Thank you for the referral of this patient. Sincerely, Oral Hampton, DPT Balance/Gait/Functional tests - Balance/Special Test Scores Functional Gait Assessment Score: 17 % Disability: 43.3400 CATSIB Score (Max score 120 seconds): 42 Lower Extremity Functional Score: 32 TUG Test Time Seconds: 14.75 Tug Test: <20 sec.=mostly independent
== END 2022-01-20 19:00 | disposition home or self-care (01) ==
LOC: PT 15:00
PROVIDERS: PCP Family Medicine; Referring Provider Orthopaedic Surgery; Visit Provider Orthopaedic Surgery
DX: R26.81 Unsteadiness on feet (principal); G62.9 Polyneuropathy, unspecified; Z87.39 Personal history of other diseases of the musculoskeletal system and connective tissue
CPT/HCPCS: 97113; 97161; 97164; 97530

== ENCOUNTER 2022-02-19 15:00 | Outpatient (RCR) | payer MEDICARE, SELFPAY | END 2022-03-04 23:59 | LOC: DC 15:00 | PROVIDERS: PCP Family Medicine; Referring Provider Family Medicine; Visit Provider Family Medicine | DX: E11.9 Type 2 diabetes mellitus without complications (principal) | CPT/HCPCS: G0108 ==

== ENCOUNTER 2022-04-02 08:00 | Outpatient (RCR) | payer MEDICARE, SELFPAY | END 2022-04-03 23:59 | LOC: DC 08:00 | PROVIDERS: PCP Family Medicine; Referring Provider Family Medicine; Visit Provider Family Medicine | DX: E11.9 Type 2 diabetes mellitus without complications (principal) | CPT/HCPCS: 97802; G0108 ==

== ENCOUNTER 2022-04-14 08:02 | Outpatient (RCR) | payer MEDICARE, SELFPAY | END 2022-05-04 23:59 | LOC: DC 08:02 | PROVIDERS: PCP Family Medicine; Referring Provider Family Medicine; Visit Provider Family Medicine | DX: E11.9 Type 2 diabetes mellitus without complications (principal) | CPT/HCPCS: 97803 ==

== ENCOUNTER → 2022-04-30 | Outpatient (CLI) | payer MEDICARE, SELFPAY ==
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
== END | disposition home or self-care (01) ==
LOC: RAD 09:59
PROVIDERS: PCP Family Medicine; Referring Provider Anesthesiology Pain Medicine; Visit Provider Anesthesiology Pain Medicine
DX: M25.551 Pain in right hip (principal)
CPT/HCPCS: 73502

== ENCOUNTER 2022-06-05 11:51 | Outpatient (RCR) | payer MEDICARE, SELFPAY | END 2022-07-04 23:59 | LOC: DC 11:51 | PROVIDERS: PCP Family Medicine; Referring Provider Family Medicine; Visit Provider Family Medicine | DX: E11.9 Type 2 diabetes mellitus without complications (principal) | CPT/HCPCS: G0109 ==

== ENCOUNTER → 2022-06-05 | Outpatient (CLI) | payer MEDICARE, SELFPAY ==
[2022-06-05 13:02] LABS: Hemoglobin A1c 7.8 % (3.8-5.6)
[2022-06-05 13:07] LABS: ALB/GLOB Ratio 1.1 RATIO (0.9-2.4); AST(SGOT) 19 U/L (15-37); Alanine Aminotransfer ALT/SGPT 35 U/L (13-56); Albumin, Serum 4.1 g/dL (3.2-5.0); Alkaline Phosphatase 70 U/L (45-117); Anion Gap 5 (5-15); BUN 15 mg/dL (7-18); BUN/Creat Ratio 18.2 RATIO (10-20); Calcium,Total 9.7 mg/dL (8.5-10.1); Chloride 103 mmol/L (98-107); Creatinine, Serum 0.82 mg/dL (0.55-1.02); EST Glomerular Filtration Rate 74 mL/min (>60); Est Glom Filt Rate - Afr Amer 90 mL/min (>60); Globulin 3.7 g/dL (2.2-4.2); Glucose 129 mg/dL (74-106); Potassium 4.1 mmol/L (3.5-5.1); Protein, Total 7.8 g/dL (6.4-8.2); Sodium Level 140 mmol/L (136-145)
== END | disposition home or self-care (01) ==
PROVIDERS: PCP Family Medicine; Referring Provider Family Medicine; Visit Provider Family Medicine
DX: Z51.81 Encounter for therapeutic drug level monitoring (principal); E11.65 Type 2 diabetes mellitus with hyperglycemia
CPT/HCPCS: 36415; 80053; 83036; G0109

== ENCOUNTER 2022-07-10 15:56 | Outpatient (RCR) | payer MEDICARE, SELFPAY | END 2022-08-04 23:59 | LOC: DC 15:56 | PROVIDERS: PCP Family Medicine; Referring Provider Family Medicine; Visit Provider Family Medicine | DX: E11.9 Type 2 diabetes mellitus without complications (principal) | CPT/HCPCS: G0109 ==

== ENCOUNTER 2022-09-04 12:13 | Outpatient (RCR) | payer MEDICARE, SELFPAY | END 2022-10-04 23:59 | LOC: DC 12:13 | PROVIDERS: PCP Family Medicine; Referring Provider Family Medicine; Visit Provider Family Medicine | DX: E11.9 Type 2 diabetes mellitus without complications (principal) | CPT/HCPCS: G0109 ==

== ENCOUNTER 2022-12-04 14:39 | Outpatient (RCR) | payer MEDICARE, SELFPAY | END 2023-01-02 23:59 | LOC: DC 14:39 | PROVIDERS: PCP Family Medicine; Referring Provider Family Medicine; Visit Provider Family Medicine | DX: E11.9 Type 2 diabetes mellitus without complications (principal) | CPT/HCPCS: G0109 ==

== ENCOUNTER 2023-02-05 08:29 | Outpatient (RCR) | payer MEDICARE, SELFPAY | END 2023-03-04 23:59 | LOC: DC 08:29 | PROVIDERS: PCP Family Medicine; Referring Provider Family Medicine; Visit Provider Family Medicine | DX: E11.9 Type 2 diabetes mellitus without complications (principal) ==

== ENCOUNTER → 2023-03-05 | Outpatient (CLI) | payer MEDICARE, SELFPAY ==
[2023-03-10 04:07] LABS: Chlamydia By Nucleic Acid AMP Negative (Negative); Gonococcus By Nucleic Acid AMP Negative (Negative)
== END | disposition home or self-care (01) ==
LOC: BFHLAB 16:29 → LABSPEC 16:29
PROVIDERS: PCP Family Medicine; Referring Provider Family Medicine; Visit Provider Family Medicine
DX: N89.8 Other specified noninflammatory disorders of vagina (principal)
CPT/HCPCS: 87210; 87491; 87591

== ENCOUNTER → 2023-05-27 | Outpatient (CLI) | payer MEDICARE, SELFPAY ==
[2023-05-27 11:14] LABS: Absolute Lymphocyte Count 2.49 X10^3/uL (0.83-4.51); Absolute Neutrophil Count 6.4 X10^3/uL (2.0-7.7); Basophil# 0.04 X10^3/uL; Basophil% 0.4 % (0-1); Eosinophil# 0.13 X10^3/uL; Eosinophils% 1.4 % (0-5); Hematocrit 46.1 % (37-47); Hemoglobin 14.9 g/dL (12.0-15.0); Lymphocyte # 2.49 X10^3/ul (0.83-4.51); Lymphocyte % 26.1 % (19-41); Mean Corp Hgb Conc 32.3 g/dL (32-36); Mean Corpuscular Hgb 29.3 pg (27.0-32.0); Mean Corpuscular Volume 90.7 fL (81-99); Mean Platelet Vol. 9.7 fl (6.2-12.0); Monocyte# 0.46 X10^3/uL; Monocyte% 4.8 % (0-10); NRBC Flagged by Analyzer 0 % (0-5); Neutrophil # 6.42 X10^3/uL (2.7-7.7); Neutrophil % 67.2 % (47-70); Platelet Count 298 K/mm3 (150-450); RBC Distribution Width CV 12.7 % (11.6-14.6); RBC Distribution Width SD 42.1 fl (35.1-43.9); Red Blood Count 5.08 M/mm3 (4.2-5.4); White Blood Count 9.6 K/mm3 (4.4-11.0)
[2023-05-27 11:26] LABS: Erythrocyte Sedimentation Rate 5 mm/hr (0-30)
[2023-05-27 11:42] LABS: ALB/GLOB Ratio 1.2 RATIO (0.9-2.4); AST(SGOT) 23 U/L (15-37); Alanine Aminotransfer ALT/SGPT 39 U/L (13-56); Alkaline Phosphatase 81 U/L (45-117); Anion Gap 4 (5-15); BUN 21 mg/dL (7-18); BUN/Creat Ratio 22.6 RATIO (10-20); Calcium,Total 9.5 mg/dL (8.5-10.1); Chloride 104 mmol/L (98-107); Creatinine, Serum 0.93 mg/dL (0.55-1.02); EST Glomerular Filtration Rate 64 mL/min (>60); Est Glom Filt Rate - Afr Amer 78 mL/min (>60); Globulin 3.2 g/dL (2.2-4.2); Glucose 113 mg/dL (74-106); LDH 182 U/L (84-246); Potassium 4.5 mmol/L (3.5-5.1); Protein, Total 7.2 g/dL (6.4-8.2); Sodium Level 136 mmol/L (136-145)
[2023-05-27 18:46] LABS: Xtra Tube EP Lab EXTRA TUBE
[2023-05-28 16:09] LABS: Albumin 3.9 g/dL (2.9-4.4); Alpha-1-Globulins 0.3 g/dL (0.0-0.4); Alpha-2-Globulins 0.8 g/dL (0.4-1.0); Free Kappa Light Chains 10.2 mg/L (3.3-19.4); Free Lambda Light Chains 7.3 mg/L (5.7-26.3); Gamma Globulin 0.7 g/dL (0.4-1.8); Immunoglobulin A 95 mg/dL (87-352); Immunoglobulin G 697 mg/dL (586-1602); Immunoglobulin M 77 mg/dL (26-217); PROEL- TOTAL PROTEIN 6.8 g/dL (6.0-8.5)
== END | disposition home or self-care (01) ==
LOC: LAB 10:42
PROVIDERS: PCP Family Medicine; Referring Provider Internal Medicine Medical Oncology; Visit Provider Internal Medicine Medical Oncology
DX: D47.2 Monoclonal gammopathy (principal)
CPT/HCPCS: 36415; 80053; 82784; 83615; 83883; 84165; 85025; 85652; 86334

== ENCOUNTER → 2023-09-24 | Outpatient (CLI) | payer MEDICARE, SELFPAY ==
[2023-09-24 16:08] LABS: Absolute Lymphocyte Count 3.02 X10^3/uL (0.83-4.51); Absolute Neutrophil Count 7.2 X10^3/uL (2.0-7.7); Basophil# 0.05 X10^3/uL; Basophil% 0.5 % (0-1); Eosinophil# 0.12 X10^3/uL; Eosinophils% 1.1 % (0-5); Hematocrit 47.4 % (37-47); Hemoglobin 15.3 g/dL (12.0-15.0); Lymphocyte # 3.02 X10^3/ul (0.83-4.51); Lymphocyte % 27.2 % (19-41); Mean Corp Hgb Conc 32.3 g/dL (32-36); Mean Corpuscular Hgb 28.6 pg (27.0-32.0); Mean Corpuscular Volume 88.6 fL (81-99); Mean Platelet Vol. 9.6 fl (6.2-12.0); Monocyte# 0.68 X10^3/uL; Monocyte% 6.1 % (0-10); NRBC Flagged by Analyzer 0 % (0-5); Neutrophil # 7.19 X10^3/uL (2.7-7.7); Neutrophil % 64.7 % (47-70); Platelet Count 351 K/mm3 (150-450); RBC Distribution Width CV 12.8 % (11.6-14.6); RBC Distribution Width SD 41.5 fl (35.1-43.9); Red Blood Count 5.35 M/mm3 (4.2-5.4); White Blood Count 11.1 K/mm3 (4.4-11.0)
[2023-09-24 16:14] LABS: Erythrocyte Sedimentation Rate 25 mm/hr (0-30)
[2023-09-24 16:32] LABS: Lactic Acid 1.4 mmol/L (0.4-1.9)
[2023-09-24 17:06] LABS: ALB/GLOB Ratio 1.1 RATIO (0.9-2.4); AST(SGOT) 36 U/L (15-37); Alanine Aminotransfer ALT/SGPT 34 U/L (13-56); Alkaline Phosphatase 78 U/L (45-117); Anion Gap 8 (5-15); BUN 17 mg/dL (7-18); BUN/Creat Ratio 18.5 RATIO (10-20); CRP 3.63 mg/L (0.0-3.0); Calcium,Total 9.6 mg/dL (8.5-10.1); Chloride 102 mmol/L (98-107); Creatinine, Serum 0.92 mg/dL (0.55-1.02); EST Glomerular Filtration Rate 65 mL/min (>60); Est Glom Filt Rate - Afr Amer 79 mL/min (>60); Free T3 3.2 pg/mL (2.18-3.98); Globulin 3.6 g/dL (2.2-4.2); Glucose 155 mg/dL (74-106); Potassium 3.9 mmol/L (3.5-5.1); Protein, Total 7.6 g/dL (6.4-8.2); Sodium Level 137 mmol/L (136-145); T4 Free Direct 1.03 ng/dL (0.76-1.46); Thyroid Stim Hormone (TSH) 2.46 uIU/mL (0.358-3.74)
[2023-10-07 06:08] LABS: Arsenic 7245 1 ug/L (0-9); Lead, Blood < 1.0 ug/dL (0.0-3.4); Lead, Blood Adult 16+yrs 1.1 ug/dL (0.0-3.4); Mercury, Blood 85324 1.4 ug/L (0.0-14.9)
== END | disposition home or self-care (01) ==
PROVIDERS: PCP Family Medicine; Visit Provider Family Medicine
DX: F06.8 Other specified mental disorders due to known physiological condition (principal); S06.9X0S Unspecified intracranial injury without loss of consciousness, sequela; Z51.81 Encounter for therapeutic drug level monitoring; M25.50 Pain in unspecified joint; R53.83 Other fatigue
CPT/HCPCS: 36415; 80053; 82077; 82140; 82175; 83605; 83655; 83825; 84439; 84443; 84481; 85025; 85652; 86140

== ENCOUNTER 2023-09-25 04:10 | Emergency (ER) | payer MEDICARE, SELFPAY ==
[2023-09-25 04:13] VITALS: BP 184/101; PULSE 84; RESP 16; TEMP 37; O2SAT 98; BMI 27.9
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
--- NOTE | 2023-09-25 05:03 | EKG12_ITS ---
Test Reason : Blood Pressure : / mmHG Vent. Rate : 073 BPM Atrial Rate : 073 BPM P-R Int : 134 ms QRS Dur : 078 ms QT Int : 402 ms P-R-T Axes : 049 000 042 degrees QTc Int : 442 ms Normal sinus rhythm Normal ECG Confirmed by KIMBERLY AHUMADA, CASEY ([id number]), assignment desk editor MICKEY CESAR ([id number]) on 10/06/2023 8:40:56 AM Referred By: Confirmed By:CASEY HARRIS MD
[2023-09-25 05:47] LABS: Absolute Lymphocyte Count 1.82 X10^3/uL (0.83-4.51); Basophil# 0.05 X10^3/uL; Basophil% 0.5 % (0-1); Eosinophil# 0.05 X10^3/uL; Eosinophils% 0.5 % (0-5); Hematocrit 46.6 % (37-47); Hemoglobin 15.1 g/dL (12.0-15.0); Lymphocyte # 1.82 X10^3/ul (0.83-4.51); Lymphocyte % 19.3 % (19-41); Mean Corp Hgb Conc 32.4 g/dL (32-36); Mean Corpuscular Hgb 28.7 pg (27.0-32.0); Mean Corpuscular Volume 88.4 fL (81-99); Mean Platelet Vol. 9.5 fl (6.2-12.0); Monocyte# 0.49 X10^3/uL; Monocyte% 5.2 % (0-10); NRBC Flagged by Analyzer 0 % (0-5); Neutrophil # 6.98 X10^3/uL (2.7-7.7); Neutrophil % 74.3 % (47-70); Platelet Count 298 K/mm3 (150-450); RBC Distribution Width CV 12.5 % (11.6-14.6); RBC Distribution Width SD 40.6 fl (35.1-43.9); Red Blood Count 5.27 M/mm3 (4.2-5.4); White Blood Count 9.4 K/mm3 (4.4-11.0)
[2023-09-25 05:49] LABS: Bacteria 0 SEEN /hpf (None Seen); Mucous, Urine 0 SEEN /hpf (<or=2+); Red Blood Cells-Urine 0 SEEN /hpf (0-5); White Blood Cells 0 SEEN /hpf (0-5)
[2023-09-25 05:59] LABS: Color, Urine Yellow (Yellow); Glucose, Dipstick 50 mg/dl (Normal); Ketone-Dipstick Negative (Negative); Leukocyte Esterase-Dipstick Negative /ul (Negative); Nitrite-Dipstick Negative (Negative); Occult Blood-Urine 25 /ul (Negative); Protein-Dipstick 15 mg/dl (Negative); Urine Bilirubin Dipstick Negative (Negative); Urine Clarity Clear (Clear); Urine Urobilinogen Normal (Normal)
[2023-09-25 06:10] LABS: Anion Gap 6 (5-15); BUN 18 mg/dL (7-18); BUN/Creat Ratio 18.5 RATIO (10-20); CPK Total, Creatine Kinase 530 U/L (26-192); Calcium,Total 9.1 mg/dL (8.5-10.1); Chloride 106 mmol/L (98-107); Creatinine, Serum 0.97 mg/dL (0.55-1.02); EST Glomerular Filtration Rate 61 mL/min (>60); Est Glom Filt Rate - Afr Amer 74 mL/min (>60); Estimated Creatinine Clearance 57.55 ml/min; Glucose 216 mg/dL (74-106); Potassium 3.7 mmol/L (3.5-5.1); Sodium Level 140 mmol/L (136-145)
[2023-09-25 06:16] LABS: Squamous Epithelial Cells - UA 0-5 SEEN /hpf (5-10)
[2023-09-25 06:18] LABS: Alcohol, Blood (Medical)-Serum < 3.0 mg/dL
[2023-09-25 06:22] VITALS: BP 136/100; PULSE 69; RESP 16
[2023-09-25 06:27] LABS: Amphetamine Urine VISTA NEGATIVE (<1000 ng/mL); Barbiturate Urine VISTA NEGATIVE (< 200 ng/mL); Benzodiazepine Urine VISTA POSITIVE (< 200 ng/mL); Cocaine Urine VISTA NEGATIVE (< 300 ng/mL); Ecstacy Urine VISTA NEGATIVE (< 500 ng/mL); Methadone Urine VISTA NEGATIVE (< 300 ng/mL); PCP Urine VISTA NEGATIVE (< 25 ng/mL); THC Urine VISTA POSITIVE (< 50 ng/mL); Vista UDS pH Range 5
[2023-09-25 07:11] VITALS: BP 139/93; PULSE 66; RESP 16
[2023-09-25 08:01] VITALS: BP 147/91; PULSE 88; RESP 18; O2SAT 98
== END 2023-09-25 08:15 | disposition home or self-care (01) ==
PROVIDERS: Emergency Provider Emergency Medicine; PCP Family Medicine; Visit Provider Emergency Medicine
DX: R20.2 Paresthesia of skin (principal); M79.7 Fibromyalgia; Z79.899 Other long term (current) drug therapy
CPT/HCPCS: 80048; 80307; 81001; 82077; 82550; 85025; 93005; 99282

== ENCOUNTER 2023-09-27 05:57 | Emergency (ER) | payer MEDICARE, SELFPAY ==
[2023-09-27] VITALS (7 sets, daily range): BP systolic 123–138; BP diastolic 67–96; PULSE 62–84; RESP 15–22; TEMP 36.7–36.8; O2SAT 93–98; BMI 27.6
--- NOTE | 2023-09-27 06:21 | CT_ITS ---
EXAM: CT HEAD WITHOUT INTRAVENOUS CONTRAST CLINICAL INDICATION: altered mental TECHNIQUE: Multiple axial images were obtained of the head without intravenous contrast. This CT exam was performed using one or more of the following dose reduction techniques: automated exposure control, adjustment of the mA and/or kV according to patient size, and/or use of iterative reconstruction technique. RADIATION DOSE: Total DLP: 745.49 mGy-cm. COMPARISON: Cranial CT of 04/17/2021. FINDINGS: BRAIN AND EXTRA-AXIAL SPACES: Very mild age-related cerebral atrophy is present with minimal prominence of the cortical sulci and sylvian fissures. Ventricles are normal in size and shape. Very mild cerebellar atrophy also noted. No intra- or extra-axial hemorrhage. No evidence of acute infarct. No intracranial mass or mass effect. There is preservation of the souza/white matter interface. Posterior fossa structures are unremarkable. Basal cisterns are patent. BONES/JOINTS: Unremarkable. No discrete lytic or blastic abnormalities. VASCULATURE: Atherosclerotic vascular calcification is present. The middle cerebral arteries are not hyperdense. SINUSES: Unremarkable as visualized. Clear. MASTOID AIR CELLS: Unremarkable. Clear. ORBITS: Visualized globes, extraocular muscles, optic nerves and retrobulbar fat appear unremarkable. CT/Brain/Head without Contrast IMPRESSION: Minimal atrophy. No acute findings in the head/brain. Electronically Signed: Antonio Olmedo MD at 7:46 EST ,
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
[2023-09-27 06:45] LABS: Absolute Neutrophil Count 6.3 X10^3/uL (2.0-7.7); Basophil# 0.05 X10^3/uL; Basophil% 0.6 % (0-1); Eosinophil# 0.07 X10^3/uL; Eosinophils% 0.8 % (0-5); Lymphocyte % 18.9 % (19-41); Mean Corp Hgb Conc 31.9 g/dL (32-36); Mean Corpuscular Hgb 28.4 pg (27.0-32.0); Mean Platelet Vol. 9.7 fl (6.2-12.0); Monocyte# 0.46 X10^3/uL; Monocyte% 5.4 % (0-10); NRBC Flagged by Analyzer 0 % (0-5); Neutrophil # 6.25 X10^3/uL (2.7-7.7); Neutrophil % 74.1 % (47-70); Platelet Count 281 K/mm3 (150-450); RBC Distribution Width CV 12.7 % (11.6-14.6); RBC Distribution Width SD 41.7 fl (35.1-43.9); Red Blood Count 5.28 M/mm3 (4.2-5.4); White Blood Count 8.5 K/mm3 (4.4-11.0)
[2023-09-27 06:58] LABS: Alcohol, Blood (Medical)-Serum < 3.0 mg/dL
[2023-09-27 07:02] LABS: ALB/GLOB Ratio 1.1 RATIO (0.9-2.4); AST(SGOT) 26 U/L (15-37); Alanine Aminotransfer ALT/SGPT 34 U/L (13-56); Albumin, Serum 3.7 g/dL (3.2-5.0); Alkaline Phosphatase 69 U/L (45-117); Anion Gap 4 (5-15); BUN 13 mg/dL (7-18); BUN/Creat Ratio 13.6 RATIO (10-20); CPK Total, Creatine Kinase 206 U/L (26-192); Calcium,Total 9.4 mg/dL (8.5-10.1); Chloride 104 mmol/L (98-107); Creatinine, Serum 0.96 mg/dL (0.55-1.02); EST Glomerular Filtration Rate 62 mL/min (>60); Est Glom Filt Rate - Afr Amer 75 mL/min (>60); Estimated Creatinine Clearance 58.15 ml/min; Globulin 3.4 g/dL (2.2-4.2); Glucose 186 mg/dL (74-106); Potassium 3.6 mmol/L (3.5-5.1); Protein, Total 7.1 g/dL (6.4-8.2); Sodium Level 138 mmol/L (136-145)
--- NOTE | 2023-09-27 07:11 | EKG12_ITS ---
Test Reason : Blood Pressure : / mmHG Vent. Rate : 066 BPM Atrial Rate : 066 BPM P-R Int : 162 ms QRS Dur : 084 ms QT Int : 416 ms P-R-T Axes : 038 -04 035 degrees QTc Int : 436 ms Normal sinus rhythm Normal ECG Confirmed by CASEY HARRIS MD ([id number]), science editor MICKEY CESAR ([id number]) on 10/06/2023 9:09:02 AM Referred By: JOANN Confirmed By:CASEY HARRIS MD
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
[2023-09-27] MEDS: ALPRAZolam 0.5 MG Tablet 1 MG PO ×2 (09:38→22:01)
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
[2023-09-27 10:12] LABS: Red Blood Cells-Urine 0 SEEN /hpf (0-5)
[2023-09-27 10:23] LABS: Color, Urine Yellow (Yellow); Glucose, Dipstick Normal (Normal); Ketone-Dipstick 5 mg/dl (Negative); Leukocyte Esterase-Dipstick Negative /ul (Negative); Nitrite-Dipstick Negative (Negative); Occult Blood-Urine 10 /ul (Negative); Protein-Dipstick Negative (Negative); Urine Bilirubin Dipstick Negative (Negative); Urine Clarity Clear (Clear); Urine Urobilinogen 1 mg/dl (Normal)
--- NOTE | 2023-09-27 10:27 | ED.RN ---
crisis in with pt
[2023-09-27 10:32] LABS: Bacteria 1+ /hpf (None Seen); Mucous, Urine 2+ /hpf (<or=2+); Squamous Epithelial Cells - UA 0-5 SEEN /hpf (5-10); White Blood Cells 0-5 SEEN /hpf (0-5)
[2023-09-27 10:39] LABS: Amphetamine Urine VISTA NEGATIVE (<1000 ng/mL); Barbiturate Urine VISTA NEGATIVE (< 200 ng/mL); Benzodiazepine Urine VISTA POSITIVE (< 200 ng/mL); Cocaine Urine VISTA NEGATIVE (< 300 ng/mL); Ecstacy Urine VISTA NEGATIVE (< 500 ng/mL); Methadone Urine VISTA NEGATIVE (< 300 ng/mL); PCP Urine VISTA NEGATIVE (< 25 ng/mL); THC Urine VISTA POSITIVE (< 50 ng/mL); Vista UDS pH Range 4
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
[2023-09-27] MEDS: Atenolol 25 MG Tablet PO (14:44)
[2023-09-27] MEDS: glipiZIDE 5 MG Tablet PO (14:44)
--- NOTE | 2023-09-27 16:56 | ED.RN ---
ACCEPTED TO [facility] PER CRISIS, [facility] FAXED PER CRISIS REQUEST. CRISIS WILL CALL BACK WITH ACCEPTING INFO.
[2023-09-27] MEDS: Pramipexole Di-HCl 0.5 MG Tablet 1.5 MG PO (21:58)
[2023-09-27] MEDS: cycloBENZAPRine HCl 10 MG Tablet PO (22:00)
[2023-09-27] MEDS: Vibegron 75 MG TABLET PO (22:01)
[2023-09-28 00:44] VITALS: RESP 18
[2023-09-28 02:22] VITALS: PULSE 76; RESP 18; O2SAT 96
[2023-09-28 04:05] VITALS: BP 128/60; PULSE 75; RESP 18
[2023-09-28 06:59] VITALS: RESP 16
[2023-09-28] MEDS: glipiZIDE 5 MG Tablet PO (09:16)
[2023-09-28] MEDS: cycloBENZAPRine HCl 10 MG Tablet PO (09:22)
[2023-09-28] MEDS: ALPRAZolam 0.5 MG Tablet 1 MG PO (09:22)
[2023-09-28] MEDS: Atenolol 25 MG Tablet PO (09:22)
== END 2023-09-28 09:35 ==
PROVIDERS: Emergency Medicine; Emergency Provider Emergency Medicine; PCP Family Medicine; Visit Provider Emergency Medicine
DX: F60.0 Paranoid personality disorder (principal); F41.9 Anxiety disorder, unspecified; R20.2 Paresthesia of skin; M79.7 Fibromyalgia
CPT/HCPCS: 70450; 80053; 80307; 81001; 82077; 82140; 82550; 85025; 87811; 93005; 99285

== ENCOUNTER → 2024-02-01 | Outpatient (CLI) | payer MEDICARE, SELFPAY ==
[2024-02-01 12:14] LABS: Absolute Lymphocyte Count 1.96 X10^3/uL (0.83-4.51); Basophil# 0.05 X10^3/uL; Basophil% 0.6 % (0-1); Eosinophil# 0.23 X10^3/uL; Eosinophils% 2.6 % (0-5); Hematocrit 42.2 % (37-47); Hemoglobin 13.9 g/dL (12.0-15.0); Lymphocyte # 1.96 X10^3/ul (0.83-4.51); Lymphocyte % 22.2 % (19-41); Mean Corp Hgb Conc 32.9 g/dL (32-36); Mean Corpuscular Hgb 28.4 pg (27.0-32.0); Mean Corpuscular Volume 86.1 fL (81-99); Mean Platelet Vol. 9.6 fl (6.2-12.0); Monocyte# 0.52 X10^3/uL; Monocyte% 5.9 % (0-10); NRBC Flagged by Analyzer 0 % (0-5); Neutrophil # 6.01 X10^3/uL (2.7-7.7); Neutrophil % 68.1 % (47-70); Platelet Count 297 K/mm3 (150-450); RBC Distribution Width CV 13.3 % (11.6-14.6); RBC Distribution Width SD 41.8 fl (35.1-43.9); White Blood Count 8.8 K/mm3 (4.4-11.0)
[2024-02-01 12:41] LABS: Vitamin B12 656 pg/mL (211-911); Vitamin D,25 Hydroxy 30.1 ng/mL
[2024-02-01 13:20] LABS: ALB/GLOB Ratio 1.1 RATIO (0.9-2.4); AST(SGOT) 30 U/L (15-37); Alanine Aminotransfer ALT/SGPT 48 U/L (13-56); Albumin, Serum 3.6 g/dL (3.2-5.0); Alkaline Phosphatase 98 U/L (45-117); Anion Gap 7 (5-15); BUN 13 mg/dL (7-18); BUN/Creat Ratio 15.9 RATIO (10-20); Calcium,Total 9.2 mg/dL (8.5-10.1); Chloride 103 mmol/L (98-107); Cholesterol 177 mg/dL (200); Creatinine, Serum 0.82 mg/dL (0.55-1.02); EST Glomerular Filtration Rate 74 mL/min (>60); Est Glom Filt Rate - Afr Amer 90 mL/min (>60); Ferritin 142 ng/mL (8-252); Globulin 3.4 g/dL (2.2-4.2); Glucose 292 mg/dL (74-106); High Density Lipoprotein 49 mg/dL; Iron 69 ug/dL (50-170); Potassium 4.1 mmol/L (3.5-5.1); Sodium Level 134 mmol/L (136-145); Triglycerides 138 mg/dL; Very Low Density Lipoprotein 28 mg/dL (5-40)
[2024-02-01 13:35] LABS: Microalbumin,Random Urine < 5.0 mg/L (NO RANGE EST.)
== END | disposition home or self-care (01) ==
LOC: BFHLAB 10:15
PROVIDERS: PCP Family Medicine; Visit Provider Family Medicine
DX: E11.9 Type 2 diabetes mellitus without complications (principal); E55.9 Vitamin D deficiency, unspecified; Z51.81 Encounter for therapeutic drug level monitoring; D64.9 Anemia, unspecified; E61.1 Iron deficiency; E53.8 Deficiency of other specified B group vitamins
CPT/HCPCS: 36415; 80053; 80061; 82043; 82306; 82570; 82607; 82728; 83036; 83540; 85025

== ENCOUNTER → 2024-05-04 | Outpatient (CLI) | payer MEDICARE, SELFPAY ==
--- NOTE | 2024-05-04 15:25 | RAD_ITS ---
INDICATION: PAIN EXAMINATION/TECHNIQUE: X-RAY - LEFT XR Foot Min 3 Views 3 VIEWS COMPARISON: FINDINGS: SOFT TISSUES: There is soft tissue swelling. No radiopaque foreign body. BONES/JOINTS: No acute fracture or subluxation.. Normal alignment. Calcaneal spurring. Preservation of the joint space.. No sclerotic or destructive changes observed. RAD/Foot min 3 Views IMPRESSION: Soft tissue swelling of the foot. Electronically Signed: Dewayne Connors DO at 23:59 EDT ,
--- NOTE | 2024-05-04 15:25 | RAD_ITS ---
INDICATION: PAIN EXAMINATION/TECHNIQUE: X-RAY - LEFT XR Ankle Min 3 Views 3 VIEWS COMPARISON: FINDINGS: SOFT TISSUES: Mild soft tissue swelling. No radiopaque foreign body. BONES/JOINTS: No acute fracture or subluxation.. Normal alignment. Calcaneal spurring. Preservation of the joint space.. No sclerotic or destructive changes observed. RAD/Ankle min 3 Views IMPRESSION: Mild soft tissue edema. Electronically Signed: Dewayne Connors DO at 23:58 EDT ,
== END | disposition home or self-care (01) ==
LOC: MTRAD 15:23
PROVIDERS: PCP Family Medicine; Referring Provider Nurse Practitioner Family; Visit Provider Nurse Practitioner Family
DX: M79.672 Pain in left foot (principal); M25.572 Pain in left ankle and joints of left foot; M25.472 Effusion, left ankle
CPT/HCPCS: 73610; 73630

== ENCOUNTER → 2024-05-18 | Outpatient (CLI) | payer MEDICARE, SELFPAY | END | disposition home or self-care (01) | LOC: LABSPEC 12:44 | PROVIDERS: PCP Family Medicine; Referring Provider Family Medicine; Visit Provider Family Medicine | DX: R39.15 Urgency of urination (principal) | CPT/HCPCS: 87086; 87088 ==

== ENCOUNTER → 2024-08-25 | Outpatient (CLI) | payer MEDICARE, SELFPAY ==
--- NOTE | 2024-08-25 08:59 | VDLE_ITS ---
Reason For Study: LLE SWELLING Procedure LEFT This is a venous duplex using B-mode, color CFV is compressible, spontaneous, phasic, flow and spectral Doppler. competent, and demonstrates normal Exam performed in department. augmentation. Patient was scanned in reverse Trendelenburg FV is compressible, spontaneous, phasic, position during reflux assessment. competent and demonstrates normal augmentation. POP V is compressible, spontaneous, phasic, competent and demonstrates normal augmentation. T/P Trunk is compressible. PTV is compressible. LT PerV is compressible. SFJ is competent and measures 0.55 cm. GSV is normal. GSV proximal thigh measures 0.51 x 0.44 cm. GSV at knee measures 0.37 x 0.36 cm. GSV is competent throughout. SSV at junction is competent and measures 0.54 x 0.42 cm. SSV mid calf is competent and measures 0.34 x 0.22 cm. VL/Venous Duplex US, Unilateral Interpretation Summary Deep veins of the left lower extremity are patent and compressible segmentally. There is no evidence of left lower extremity deep vein thrombosis. The left great saphenous vein jeremie ears patent and compressible segmentally. Negative for reflux Ordering Physician: Agustina Radford Referring Physician: Polina Carter Performed By: Amarilys Contreras RDCS, RVT
== END | disposition home or self-care (01) ==
LOC: CVS 08:54
PROVIDERS: PCP Family Medicine; Referring Provider Physician Assistant; Visit Provider Physician Assistant
DX: M79.89 Other specified soft tissue disorders (principal)
CPT/HCPCS: 93971

== ENCOUNTER → 2025-01-27 | Outpatient (CLI) | payer MEDICARE, SELFPAY | END | disposition home or self-care (01) | PROVIDERS: PCP Family Medicine; Referring Provider Physician Assistant Surgical; Visit Provider Physician Assistant Surgical | DX: R82.90 Unspecified abnormal findings in urine (principal) | CPT/HCPCS: 87077; 87086; 87088; 87186 ==

== ENCOUNTER → 2025-02-23 | Outpatient (CLI) | payer MEDICARE, SELFPAY | END | disposition home or self-care (01) | PROVIDERS: PCP Family Medicine; Referring Provider Physician Assistant Surgical; Visit Provider Physician Assistant Surgical | DX: R82.90 Unspecified abnormal findings in urine (principal) | CPT/HCPCS: 87086 ==

== ENCOUNTER → 2025-06-07 | Outpatient (CLI) | payer MEDICARE, SELFPAY ==
[2025-06-07 13:28] LABS: Hematocrit 42.6 % (37-47); Hemoglobin 14.2 g/dL (12.0-15.0); Immature Granulocytes Count 0.060 X10^3/uL (0.0-0.0); Mean Corp Hgb Conc 33.3 g/dL (32-36); Mean Corpuscular Volume 86.2 fL (81-99); Mean Platelet Vol. 9.2 fl (6.2-12.0); NRBC Flagged by Analyzer 0 % (0-5); Platelet Count 304 K/mm3 (150-450); RBC Distribution Width CV 13.1 % (11.6-14.6); RBC Distribution Width SD 40.9 fl (35.1-43.9); Red Blood Count 4.94 M/mm3 (4.2-5.4); White Blood Count 10.9 K/mm3 (4.4-11.0)
[2025-06-07 14:13] LABS: AST(SGOT) 23 U/L (<=31); Alanine Aminotransfer ALT/SGPT 23 U/L (<=34); Albumin, Serum 4.4 g/dL (3.4-4.8); Alkaline Phosphatase 85 U/L (35-104); Anion Gap 11 (5-15); BUN 15 mg/dL (4-19); BUN/Creat Ratio 18.2 RATIO (10-20); Calcium,Total 9.5 mg/dL (7.6-11.0); Carbon Dioxide 28.4 mmol/L (21.0-32.0); Chloride 99 mmol/L (98-108); Globulin 2.5 g/dL (2.2-4.2); Glucose 314 mg/dL (70-99); LDH 182 U/L (84-246); Potassium 4.4 mmol/L (3.3-5.1)
[2025-06-12 14:08] LABS: Albumin 3.6 g/dL (2.9-4.4); Gamma Globulin 0.7 g/dL (0.4-1.8); Immunoglobulin A 121 mg/dL (87-352); Immunoglobulin G 731 mg/dL (586-1602); Immunoglobulin M 84 mg/dL (26-217); PROEL- TOTAL PROTEIN 6.3 g/dL (6.0-8.5)
== END | disposition home or self-care (01) ==
PROVIDERS: PCP Family Medicine; Referring Provider Internal Medicine Medical Oncology; Visit Provider Internal Medicine Medical Oncology
DX: D47.2 Monoclonal gammopathy (principal); G63 Polyneuropathy in diseases classified elsewhere
CPT/HCPCS: 36415; 80053; 82784; 83615; 83883; 84165; 85025; 86334

== ENCOUNTER → 2025-08-03 | Outpatient (CLI) | payer MEDICARE, SELFPAY ==
--- NOTE | 2025-08-03 15:09 | MRI_ITS ---
PROCEDURE: MRI/Lower Ext Joint Only (Routine)
== END | disposition home or self-care (01) ==
LOC: MRI 15:08
PROVIDERS: PCP Family Medicine; Referring Provider Orthopaedic Surgery; Visit Provider Orthopaedic Surgery
DX: M25.551 Pain in right hip (principal)
CPT/HCPCS: 73721

== ENCOUNTER → 2025-08-17 | Outpatient (CLI) | payer MEDICARE, SELFPAY ==
--- NOTE | 2025-08-17 10:58 | MRI_ITS ---
PROCEDURE: SPINE LUMBAR (ROUTINE) 08/17/2025 REASON FOR EXAM: LUMBAR SPINE PAIN TECHNIQUE: Procedure Code: MRISPL Modality: MR Procedure: SPINE LUMBAR (ROUTINE) COMPARISON: Lumbar spine x-ray 04/16/2021. FINDINGS: Vertebrae: Preserved in height and signal. Alignment: Unremarkable. Conus Medullaris: Unremarkable. L1-2: No foraminal or canal stenosis. L2-3: Small disc bulge. Mild facet joints arthropathy. No significant foraminal or canal stenosis. L3-4: Disc desiccation. Disc bulge. Facet joint arthropathy. Ligamentum flavum hypertrophy. Mild inferior bilateral foramina stenosis. Moderate canal stenosis. L4-5: Disc desiccation. Disc bulge. Annular fissure. Facet joints arthropathy. Mild inferior bilateral foramina stenosis. Mild canal stenosis. L5-S1: Disc bulge. Annular fissure. A 4 mm superimposed central disc protrusion. Sacrum: Unremarkable. A simple cyst measures 1.3 cm at the midpole of the right kidney. MRI/Spine Lumbar (Routine) IMPRESSION: Degenerate changes predominantly for moderate canal stenosis at L3-L4. A 4 mm superimposed disc protrusion with annular fissure at L5-S1 without signi ficant foraminal or canal stenosis. Reading Location: [id number]
== END | disposition home or self-care (01) ==
LOC: OPMRI 10:50
PROVIDERS: PCP Family Medicine; Referring Provider Orthopaedic Surgery; Visit Provider Orthopaedic Surgery
DX: M54.16 Radiculopathy, lumbar region (principal)
CPT/HCPCS: 72148